=== PATIENT | female | born 1960 | race Caucasian/White ===

== ENCOUNTER 2016-03-17 07:53 | Day surgery (SDC) | payer BC ==
[2016-03-14 15:02] VITALS: BMI 26.2
[~2016-03-17 07:53] MED LIST: LACTATED RINGERS 1,000 ML IV SCH
[2016-03-17] MEDS ORDERED: LACTATED RINGERS 1,000 ML IV ONE (08:20)
[2016-03-17] MEDS ORDERED: LIDOCAINE 1% 20 ML VIAL (10MG/ML) FOR IV START INTRADERMA ONE (08:20)
[2016-03-17 08:23] VITALS: TEMP 98
[2016-03-17] MEDS ORDERED: PROPOFOL 10 MG/ML 20 ML VIAL IV ONE (09:01)
--- NOTE | 2016-03-17 09:15 | P.PCN ---
Date of Procedure: 03/17/16 Procedure(s) Performed: BRIEF HISTORY: Patient is a 55-year-old pleasant white female, scheduled for an elective colonoscopy as a part of screening for colorectal neoplasia. She does have family history of colon cancer diagnosed in a grandmother at age 70. PROCEDURE PERFORMED: Colonoscopy. PREOPERATIVE DIAGNOSIS: Screening for colon cancer/family history of colon cancer. IV sedation per Anesthesia. PROCEDURE: After informed consent was obtained, the patient, was brought into the endoscopy unit. IV conscious sedation was administered by Anesthesia under continuous monitoring. Digital rectal examination was normal. Initially the Olympus CF-160 flexible video colonoscope was then inserted in the rectum, gradually advanced into the cecum without any difficulty. Careful examination was performed as the scope was gradually being withdrawn. Ileocecal valve and the appendiceal orifice were visualized and appeared normal. Prep was excellent. Mucosa of the cecum, ascending colon, transverse colon, descending colon, sigmoid colon, and rectum appeared normal. Retroflexion was performed in the rectum and no lesions were seen. The patient tolerated the procedure well. IMPRESSION: Normal-appearing colon from rectum to cecum with no evidence of colorectal. RECOMMENDATIONS: Findings of this examination were discussed with the patient as well as a family. She was advised to have a repeat screening colonoscopy in 5 years because of family history of colon cancer.
[2016-03-17 09:21] VITALS: RESP 16
[2016-03-17 09:53] VITALS: BP 96/61; PULSE 74
== END 2016-03-17 10:05 | disposition home or self-care (01) ==
LOC: ORWHC2ENDO 07:53
PROVIDERS: ATTEND Internal Medicine Gastroenterology
DX: Z12.11 Encounter for screening for malignant neoplasm of colon (principal); Z80.0 Family history of malignant neoplasm of digestive organs; Z79.899 Other long term (current) drug therapy; Z79.2 Long term (current) use of antibiotics
CPT/HCPCS: 81025; 84703; J2704; G0105

== ENCOUNTER → 2016-10-13 | Outpatient (CLI) | payer BC ==
[2016-10-13 16:31] LABS: EKG EKG PERFORMED
[2016-10-13 17:08] LABS: Basophils % (A) 1 %; CHCM 30.3; Eosinophils # (A) 0.2 k/uL (0-0.7); Eosinophils % (A) 3 %; HCT 30.8 % (34.0-46.0); HDW 3.95; HGB 9.5 gm/dL (11.4-16.0); Hypochromasia Marked; Luc # (Auto) 0.12; Luc % (Auto) 2; Lymphocytes # (A) 1.3 k/uL (1.0-4.8); Lymphocytes % (A) 26 %; MCH 27.4 pg (25.0-35.0); MCHC 30.7 g/dL (31.0-37.0); MCV 89.3 fL (80.0-100.0); Mean Platelet Volume 9.4; Monocytes # (A) 0.3 k/uL (0-1.0); Monocytes % (A) 5 %; Neutrophils # (A) 3.3 k/uL (1.3-7.7); Neutrophils % (A) 63 %; Poikilocytosis Slight; RBC 3.45 m/uL (3.80-5.40); RDW 13.4 % (11.5-15.5); WBC 5.2 k/uL (3.8-10.6); WBC (Perox) 5.28
== END | disposition home or self-care (01) ==
LOC: LABPAT 16:19 → LABWHC1 16:19
PROVIDERS: ATTEND Obstetrics & Gynecology
DX: Z01.818 Encounter for other preprocedural examination (principal); Z01.810 Encounter for preprocedural cardiovascular examination; N93.8 Other specified abnormal uterine and vaginal bleeding
CPT/HCPCS: 36415; 82670; 83001; 85025; 93005

== ENCOUNTER 2016-10-17 05:57 | Day surgery (SDC) | payer BC ==
--- NOTE | 2016-10-12 07:30 | P.HPOB ---
History of Present Illness H&P Date: 10/12/16 Chief Complaint: Postmenopausal bleeding and endometrial thickening. This patient is a pleasant 55-year-old 3 para 2 female who presented to me with complaints of postmenopausal bleeding. Patient had not had a menstrual cycle in approximately 2 months, then she had 2 very heavy cycles. Past medical history is significant for breast cancer and tamoxifen use. Patient had a pelvic ultrasound which showed endometrial thickening of 14 mm with questionable polyps. Patient did have an endometrial biopsy approximately 2 years ago that was okay however now presents for hysteroscopy D&C for further evaluation. Review of Systems Constitutional: Denies chills, Denies fever Ears, nose, mouth and throat: Denies headache, Denies sore throat Cardiovascular: Denies chest pain, Denies shortness of breath Gastrointestinal: Denies abdominal pain, Denies diarrhea, Denies nausea, Denies vomiting Genitourinary: Reports as per HPI, Reports abnormal vaginal bleeding Menstruation: Reports as per HPI Past Medical History Past Medical History: Cancer Additional Past Medical History / Comment(s): hx breast cancer History of Any Multi-Drug Resistant Organisms: None Reported Past Surgical History: Breast Surgery, Section Additional Past Surgical History / Comment(s): bilateral mastectomies/with reconstruction Past Anesthesia/Blood Transfusion Reactions: No Reported Reaction Past Psychological History: No Psychological Hx Reported Smoking Status: Never smoker Past Alcohol Use History: None Reported Past Drug Use History: None Reported - Past Family History Mother Family Medical History: Cancer Additional Family Medical History / Comment(s): fallopian tube cancer, mat. gma - colon cancer Medications and Allergies Home Medications Medication Instructions Recorded Confirmed Type Amoxic-Pot Clav 875-125Mg 1 tab PO Q12HR 03/14/16 03/17/16 History [Augmentin 875-125] Tamoxifen [Nolvadex] 20 mg PO DAILY 03/14/16 03/17/16 History Allergies Allergy/AdvReac Type Severity Reaction Status Date / Time No Known Allergies Allergy Verified 03/14/16 14:30 Exam - OBG Physical Exam Abdomen: bowel sounds normal, no diffuse tenderness, no bruit present, no guarding noted, no hepatomegaly, no splenomegaly, no mass Vulva: both: normal Vagina: atrophic mucosa Cervix: no lesion, no discharge Uterus: normal size Results Transvaginal ultrasound on September 22 shows endometrial thickening to 14 mm. There are 2 densities in the endometrium that are consistent with possible polyps that are 1.9 cm and 1.0 cm. Ovaries appear normal. Assessment and Plan (1) Postmenopausal bleeding Narrative/Plan: This is a pleasant 55-year-old 3 para 2 female with postmenopausal bleeding, endometrial thickening, and tamoxifen use. Plan is hysteroscopy and D &C for further evaluation. Patient and I, and her , have discussed the surgery and risks including risks of infection, bleeding, possible uterine perforation. All the patient's questions are answered and a written consent is obtained. Status: Acute
[2016-10-13 14:56] VITALS: BMI 25.7
[~2016-10-17 05:57] MED LIST changes: -LACTATED RINGERS 1,000 ML IV SCH; +Pre Op ABX Message 1 EACH MISC MISCELLANE ONE
[2016-10-17] MEDS ORDERED: ONDANSETRON 4 MG/2 ML VIAL IVP ONE (05:58)
[2016-10-17] MEDS ORDERED: DEXAMETHASONE SOD PHOSPHATE 10 MG/ML 1 ML VIAL IV ONE (05:58)
[2016-10-17] MEDS ORDERED: LIDOCAINE 1% 20 ML VIAL (10MG/ML) FOR IV START INTRADERMA PRN (05:58)
[2016-10-17] MEDS ORDERED: SCOPOLAMINE 1.5MG/72HR PATCH TRANSDERM ONE (05:58)
[2016-10-17] MEDS ORDERED: LACTATED RINGERS 1,000 ML IV SCH (05:58)
[2016-10-17] MEDS ORDERED: HYDROmorphone 1 MG/ML 1 ML SYRINGE IVP PRN (05:58)
[2016-10-17] MEDS ORDERED: MIDAZOLAM 2 MG/2 ML VIAL IV PRN (05:58)
[2016-10-17 06:20] VITALS: TEMP 98
[2016-10-17] MEDS ORDERED: fentaNYL (PF) 50 MCG/ML 2 ML AMP ONE (06:56)
[2016-10-17] MEDS ORDERED: MIDAZOLAM 2 MG/2 ML VIAL ONE (06:56)
[2016-10-17] MEDS ORDERED: LIDOCAINE 1% INJ 10MG/ML (20 ML MDV) ONE (06:56)
[2016-10-17] MEDS ORDERED: PROPOFOL 10 MG/ML 20 ML VIAL IV ONE (06:56)
--- NOTE | 2016-10-17 07:26 | P.OP ---
Date of Procedure: 10/17/16 Preoperative Diagnosis: Post menopausal bleeding with endometrial thickening Postoperative Diagnosis: Same Procedure(s) Performed: #1: Hysteroscopy. #2: Dilation and curettage Implants: Anesthesia: MAC Surgeon: Art Mujica Estimated Blood Loss (ml): 10 Urine output (ml): 25 Pathology: other (Uterine curettings) Condition: stable Disposition: PACU Indications for Procedure: Please see dictated H&P for intimate details of this patient's admission. Brief summary is a pleasant 55-year-old female with postmenopausal bleeding on tamoxifen. Patient had a transvaginal ultrasound showed endometrial thickening. She now presents for hysteroscopy D&C for further evaluation. Patient understands this surgery and risks including risks of infection, bleeding, possible uterine perforation. All the patient's questions are answered and a written consent is obtained. Operative Findings: This patient had an enlarged uterus with multiple benign appearing polypoid endometrial growths. Description of Procedure: This patient is taken to the operating room where she is laid in the supine position. She subsequently undergoes general mask anesthesia without incident. With an adequate level of anesthesia was placed in dorsal lithotomy position. She has a vaginal perineal prep and drape. Examination under anesthesia shows a mid position uterus. I drain the bladder at this time for 25 mL of clear urine. Uterus is then sounded to approximately 12 cm. Gentle dilation is done of the endocervix to easily allow the hysteroscope into the uterine cavity. Using saline solution hysteroscopy is performed. Endometrial cavity does appear thickened with multiple polypoid areas. With this done the hysteroscope was then removed. Then dilate the cervix more to allow a polyp forceps into the uterine cavity. Multiple pieces of tissue were removed at this time. A gentle but vigorous 4 quadrant curettage is then done for adequate sampling. All of this tissue is sent off to pathology. With this done the Allis clamps removed the weighted speculum removed. All counts are correct 3. There are no complications. Patient is taken to the recovery room in satisfactory condition.
[2016-10-17 07:38] VITALS: RESP 16
[2016-10-17] MEDS ORDERED: LACTATED RINGERS 1,000 ML IV ONE (08:12)
[2016-10-17 08:40] VITALS: BP 121/80; PULSE 71
== END 2016-10-17 09:12 | disposition home or self-care (01) ==
LOC: OR 05:57
PROVIDERS: ATTEND Obstetrics & Gynecology
DX: N85.00 Endometrial hyperplasia, unspecified (principal); N95.0 Postmenopausal bleeding; Z85.3 Personal history of malignant neoplasm of breast; Z79.810 Long term (current) use of selective estrogen receptor modulators (SERMs)
CPT/HCPCS: 81025; 88305; 58558; J2250; J1100; J2405; J2001; J3010; J2704

== ENCOUNTER → 2018-01-25 | Day surgery (SDC) | payer BC ==
[2018-01-22 15:59] VITALS: BMI 25.0
--- NOTE | 2018-01-24 08:04 | P.HPOB ---
History of Present Illness H&P Date: 01/24/18 Chief Complaint: Postmenopausal bleeding, endometrial thickening. This patient is a pleasant 57 yr old female who is presenting for a hysteroscopy and D&C for recurrent postmenopausal bleeding and abnormal endometrial thickening. Patient's history is such that she has been on Tamoxifen for breast cancer. Due to this, she has had surveillance ultrasounds. She had an episode of vaginal bleeding as well. Ultrasound shows a 2x3cm area in the endometrium. Previous D&C in September of 2016 showed this to be benign polypoid growths. She is now presenting for re-evaluation. Review of Systems Genitourinary: Reports as per HPI, Reports abnormal vaginal bleeding Menstruation: Reports as per HPI Past Medical History Past Medical History: Cancer Additional Past Medical History / Comment(s): Hx breast cancer 2013. THICKENING OF UTERINE LINING, MASS. History of Any Multi-Drug Resistant Organisms: None Reported Past Surgical History: Breast Surgery, Section Additional Past Surgical History / Comment(s): Bilateral mastectomies/with reconstruction. D&C, HYSTEROSCOPY. COLONOSCOPY. Past Anesthesia/Blood Transfusion Reactions: No Reported Reaction Past Psychological History: No Psychological Hx Reported Smoking Status: Never smoker Past Alcohol Use History: None Reported Past Drug Use History: None Reported - Past Family History Mother Family Medical History: Cancer Additional Family Medical History / Comment(s): fallopian tube cancer, mat. gma - colon cancer, ?blood clot Medications and Allergies Home Medications Medication Instructions Recorded Confirmed Type Tamoxifen [Nolvadex] 20 mg PO HS 03/14/16 01/22/18 History Calcium (Unknown Dose) 1 tab PO DAILY 01/22/18 History Allergies Allergy/AdvReac Type Severity Reaction Status Date / Time No Known Allergies Allergy Verified 01/22/18 15:45 Exam - OBG Physical Exam Abdomen: bowel sounds normal, no diffuse tenderness, no bruit present, no guarding noted, no hepatomegaly, no splenomegaly, no mass Vulva: both: normal Vagina: normal moisture, no discharge Cervix: no lesion, no discharge Uterus: normal size Results Transvaginal ultrasound shows endometrial thickening 2x3 cm. Assessment and Plan Assessment: This is a pleasant 57 year old female with abnormal endometial thickening, an episode of postmenopausal bleeding, and current Tamoxifen use. Plan is hysteroscopy and D&C for further evaluation. Azalia and Barak have discussed this surgery and risks: infection, bleeding, possible uterine perforation. All of the patients questions were answered and a written consent obtained. (1) Postmenopausal bleeding Status: Acute Code(s): N95.0 - POSTMENOPAUSAL BLEEDING SNOMED Code(s): 99663618 (2) Endometrial thickening on ultrasound Status: Acute Code(s): R93.89 - ABNORMAL FINDINGS ON DX IMAGING OF OTH BODY STRUCTURES SNOMED Code(s): 678020526 (3) Use of tamoxifen (Nolvadex) Status: Acute Code(s): Z79.810 - LNG TRM (CRNT) USE OF SLCTV ESTROG RECEPTOR MODULATORS SNOMED Code(s): 314423173
[~2018-01-25] MED LIST changes: +DEXAMETHASONE SOD PHOSPHATE 10 MG/ML 1 ML VIAL IV ONE; +KETOROLAC 30 MG/ML 1 ML VIAL ONE; +LACTATED RINGERS 1,000 ML IV ONE; +LACTATED RINGERS 1,000 ML IV SCH; +LIDOCAINE 1% INJ 10MG/ML (20 ML MDV) ONE; +MIDAZOLAM 2 MG/2 ML VIAL ONE; +MORPHINE SULFATE 2 MG/ML SYRINGE IV PRN; +ONDANSETRON 4 MG/2 ML VIAL IVP ONE; +ONDANSETRON 4 MG/2 ML VIAL IVP PRN; +PROPOFOL 10 MG/ML 20 ML VIAL IV ONE; +fentaNYL (PF) 50 MCG/ML 2 ML AMP ONE
[2018-01-25 07:35] VITALS: TEMP 96.8
--- NOTE | 2018-01-25 07:37 | P.OP ---
Date of Procedure: 01/25/18 Preoperative Diagnosis: #1: Postmenopausal bleeding. #2: Abnormal endometrial thickening. #3: Tamoxifen exposure Postoperative Diagnosis: Same, benign endometrial polyp/fibroid. Procedure(s) Performed: #1: Hysteroscopy. #2: Dilation and curettage Anesthesia: MAC Surgeon: Art Mujica Estimated Blood Loss (ml): 25 Urine output (ml): 25 Pathology: other (Uterine curettings) Condition: stable Disposition: PACU Indications for Procedure: Please see dictated H&P for intimate details of this patient's admission. Brief summary this is a pleasant 57-year-old female with a history of breast cancer who is been on tamoxifen for prophylactic treatment. Patient's been followed with transvaginal ultrasounds and did have an episode of postmenopausal bleeding. Patient had a 2 x 3 cm area in the endometrium that was thickened. Patient's had a previous hysteroscopy D&C for benign findings however now presents for repeat sampling. She understands this surgery and risks and risks of infection, bleeding, possible uterine perforation. All the patient's questions are answered written consent is obtained. Operative Findings: This patient had a 2 x 3 cm appearing endometrial polyp/fibroid. This appeared benign in appearance. Description of Procedure: This patient is taken to the operating room where she is laid in the supine position. She subsequent undergoes general mask anesthesia without incident. With adequate level of anesthesia was placed in dorsal lithotomy position. His vaginal perineal prep and drape. Examination under anesthesia shows a mid position uterus. I then place a weighted speculum posterior vagina. Anterior lip of the cervix is gravid and Allis clamp. The uterus is then sounded to approximate 9.5 cm. Cervix is easily dilated to allow the hysteroscope into the uterine cavity. Using saline solution hysteroscopy is performed and there is a large solitary polyp in the endometrial cavity. This could be a submucosal fibroid as well but regardless as smooth appearance and did not appear concerning. I dilated the cervix more at this time to allow the polyp forceps into the uterine cavity and despite multiple attempts with the polyp forceps and Dawson I'm unable to remove the entire growth but I am to sample it with multiple fragments. I did do a vigorous 4 quadrant curettage as well for minimal tissue. The rest of the endometrium appeared very atrophic. At this point I am comfortable that this is a benign endometrial polyp/fibroid and therefore the procedure is ended. It does appear to be large enough the base brought enough that we would not be able to completely removed at this time. This point the procedure is ended. The weighted speculum and Allis clamp are removed. All counts are correct 3. There are no complications. Patient is awakened from anesthesia and taken recovery room satisfactory condition.
[2018-01-25 08:29] VITALS: BP 119/77; PULSE 76; RESP 16
== END | disposition home or self-care (01) ==
LOC: OR 05:46
PROVIDERS: ATTEND Obstetrics & Gynecology
DX: N95.0 Postmenopausal bleeding (principal); N84.0 Polyp of corpus uteri; Z85.3 Personal history of malignant neoplasm of breast; R93.89 Abnormal findings on diagnostic imaging of other specified body structures; Z79.810 Long term (current) use of selective estrogen receptor modulators (SERMs)
CPT/HCPCS: 81025; 88305; 58558; J2250; J1100; J2405; J2001; J3010; J1885; J2704

== ENCOUNTER → 2018-04-18 | Outpatient (CLI) | payer BC ==
[2018-04-18 16:52] LABS: Basophils % (A) 0 %; Eosinophils # (A) 0.2 k/uL (0-0.7); Eosinophils % (A) 4 %; HCT 39.8 % (34.0-46.0); HGB 12.8 gm/dL (11.4-16.0); Lymphocytes # (A) 1.1 k/uL (1.0-4.8); Lymphocytes % (A) 20 %; MCHC 32.2 g/dL (31.0-37.0); Mean Platelet Volume 7.9; Monocytes # (A) 0.3 k/uL (0-1.0); Monocytes % (A) 5 %; Neutrophils # (A) 3.7 k/uL (1.3-7.7); Neutrophils % (A) 69 %; Platelet Count 174 k/uL (150-450); RBC 4.27 m/uL (3.80-5.40); RDW 13.1 % (11.5-15.5); WBC 5.4 k/uL (3.8-10.6)
[2018-04-18 16:59] LABS: Anion Gap 7 mmol/L; Blood Urea Nitrogen 11 mg/dL (7-17); Calcium 9.4 mg/dL (8.4-10.2); Carbon Dioxide 25 mmol/L (22-30); Chloride 110 mmol/L (98-107); Glucose 88 mg/dL (74-99); Potassium 4.5 mmol/L (3.5-5.1); Sodium 142 mmol/L (137-145)
== END | disposition home or self-care (01) ==
LOC: LABPAT 15:46
PROVIDERS: ATTEND Obstetrics & Gynecology
DX: Z01.812 Encounter for preprocedural laboratory examination (principal)
CPT/HCPCS: 80048; 85025

== ENCOUNTER 2018-04-19 06:03 | Day surgery (SDC) | payer BC ==
--- NOTE | 2018-04-18 17:01 | P.HPOB ---
History of Present Illness H&P Date: 04/18/18 Chief Complaint: Vaginal bleeding/prolapsing polyp/fibroid This patient is a pleasant 57 yr female who presented to my office with 9 days of bleeding and concern that she had a retained tampon. Her history is such that she had a D&C in December 2017 for postmenopausal bleeding / Tamoxifen use that showed a benign endometrial growth that was thought to be a polyp, but could not be removed due to its size (~3cm). Exam now shows this to be prolapsing through the cervix and necrotic. She now presents for attempted removal with D&C. Review of Systems Genitourinary: Reports as per HPI, Reports abnormal vaginal bleeding Menstruation: Reports postmenopausal Past Medical History Past Medical History: Cancer, Osteoarthritis (OA) Additional Past Medical History / Comment(s): hx breast cancer History of Any Multi-Drug Resistant Organisms: None Reported Past Surgical History: Breast Surgery, Section Additional Past Surgical History / Comment(s): bilateral mastectomies/with reconstruction; Hysteroscopy with D&C times 2 Past Anesthesia/Blood Transfusion Reactions: No Reported Reaction Past Psychological History: No Psychological Hx Reported Smoking Status: Never smoker Past Alcohol Use History: Occasional Past Drug Use History: None Reported - Past Family History Mother Family Medical History: Cancer Additional Family Medical History / Comment(s): fallopian tube cancer, mat. gma - colon cancer, ?blood clot Medications and Allergies Home Medications Medication Instructions Recorded Confirmed Type Tamoxifen [Nolvadex] 20 mg PO HS 03/14/16 01/22/18 History Calcium (Unknown Dose) 1 tab PO DAILY 01/22/18 01/25/18 History Ibuprofen [Motrin] 600 mg PO Q6HR PRN #40 tab 01/25/18 Rx Allergies Allergy/AdvReac Type Severity Reaction Status Date / Time No Known Allergies Allergy Verified 01/22/18 15:45 Exam - OBG Physical Exam Abdomen: bowel sounds normal, no diffuse tenderness, no bruit present, no guarding noted, no hepatomegaly, no splenomegaly, no mass Vulva: both: normal Vagina: normal moisture, no discharge Cervix: lesion (Large (3cm) polypoid/necrotic growth protruding through the cervix. ), no discharge Uterus: normal size Assessment and Plan Assessment: This is a pleasant 57 yr female with a prolapsing cervical polyp/fibroid and vaginal bleeding. It does appear necrotic. Plan is dilation and curettage with removal. Patient understands that if I am unable to remove and/or she has excessive bleeding then would need a total abdominal hysterectomy with bilateral salping-oophrectomy. She and I have discussed these surgeries and risks, including but not limited to infection, bleeding, possible injury to bowel/bladder/vessel/ and or other organs. All of the patients questions were answered and a written consent obtained. (1) Polyp at cervical os Status: Acute Code(s): N84.1 - POLYP OF CERVIX UTERI SNOMED Code(s): 917690121 (2) Uterine bleeding Status: Acute Code(s): N93.9 - ABNORMAL UTERINE AND VAGINAL BLEEDING, UNSPECIFIED SNOMED Code(s): 88949641
[~2018-04-19 06:03] MED LIST changes: -DEXAMETHASONE SOD PHOSPHATE 10 MG/ML 1 ML VIAL IV ONE; -KETOROLAC 30 MG/ML 1 ML VIAL ONE; -LACTATED RINGERS 1,000 ML IV ONE; -LACTATED RINGERS 1,000 ML IV SCH; -LIDOCAINE 1% INJ 10MG/ML (20 ML MDV) ONE; -MIDAZOLAM 2 MG/2 ML VIAL ONE; -MORPHINE SULFATE 2 MG/ML SYRINGE IV PRN; -ONDANSETRON 4 MG/2 ML VIAL IVP ONE; -ONDANSETRON 4 MG/2 ML VIAL IVP PRN; -PROPOFOL 10 MG/ML 20 ML VIAL IV ONE; -Pre Op ABX Message 1 EACH MISC MISCELLANE ONE; +ceFAZolin IN SWFI 2 GM/20 ML SYRINGE IVP ONE; -fentaNYL (PF) 50 MCG/ML 2 ML AMP ONE
[2018-04-19] MEDS ORDERED: LIDOCAINE 1% 20 ML VIAL (10MG/ML) FOR IV START INTRADERMA ONE (06:50)
[2018-04-19] MEDS ORDERED: LACTATED RINGERS 1,000 ML IV ONE (06:50)
[2018-04-19] MEDS ORDERED: DEXAMETHASONE SOD PHOS (MDV) 100 MG/10 ML VIAL IVP ONE (07:04)
[2018-04-19] MEDS ORDERED: ONDANSETRON 4 MG/2 ML VIAL IVP ONE ×2 (07:04→07:05)
[2018-04-19] MEDS ORDERED: DEXAMETHASONE SOD PHOSPHATE 10 MG/ML 1 ML VIAL IV ONE (07:05)
[2018-04-19] MEDS ORDERED: HYDROmorphone 0.5 MG/0.5 ML SYRINGE IVP PRN (07:05)
[2018-04-19] MEDS ORDERED: LACTATED RINGERS 1,000 ML IV SCH (07:05)
[2018-04-19] MEDS ORDERED: LIDOCAINE 1% 20 ML VIAL (10MG/ML) FOR IV START INTRADERMA PRN (07:05)
[2018-04-19] MEDS ORDERED: LIDOCAINE 1% INJ 10MG/ML (20 ML MDV) ONE (07:24)
[2018-04-19] MEDS ORDERED: SUCCINYLCHOLINE CHLORIDE 100 MG/5 ML SYR IV ONE (07:24)
[2018-04-19] MEDS ORDERED: fentaNYL (PF) 50 MCG/ML 2 ML AMP ONE (07:24)
[2018-04-19] MEDS ORDERED: MIDAZOLAM 2 MG/2 ML VIAL ONE (07:24)
[2018-04-19] MEDS ORDERED: ceFAZolin 1,000 MG VIAL ONE (07:24)
[2018-04-19] MEDS ORDERED: PROPOFOL 10 MG/ML 20 ML VIAL IV ONE (07:24)
[2018-04-19] MEDS ORDERED: NALOXONE 0.4 MG/ML 1 ML VIAL ONE (07:24)
--- NOTE | 2018-04-19 08:11 | P.OP ---
Date of Procedure: 04/19/18 Preoperative Diagnosis: Prolapsing uterine polyp/fibroid with vaginal bleeding Postoperative Diagnosis: Same Procedure(s) Performed: Dilation and curettage with removal of uterine polyp Anesthesia: MARGIA Surgeon: Art Mujica Estimated Blood Loss (ml): 10 Urine output (ml): 25 Pathology: other (Uterine curettings and endometrial growth) Condition: stable Disposition: PACU Indications for Procedure: Please see dictated H&P for intimate details of this patient's admission. Brief summary this pleasant 57-year-old patient well known to me with initial complaints of prolonged vaginal bleeding and suspected retained tampon which actually turned out to be a prolapsing uterine polyp/fibroid patient now presents for dilation and curettage and removal. She and I did discuss the surgery in detail she understands I believe this can be removed without doing a hysterectomy if she did have excessive bleeding or other complications from her removal this was always be a case. Patient stands risks of surgery including risks of infection, bleeding, possible requiring more surgery. All the patient' s questions are answered written consent is obtained. Operative Findings: This patient a very large 7 x 3 cm prolapsing endometrial polyp/fibroid. It appeared to be necrotic Description of Procedure: This patient is taken to the operating room where she is laid in the supine position. She subsequently undergoes general endotracheal anesthesia without incident. With an adequate level of anesthesia she's placed in dorsal lithotomy position. She has a vaginal perineal prep and drape. Examination under anesthesia shows a mid position uterus with a growth coming from the cervix. Bladder is drained for 25 mL of clear urine. Then place weighted speculum posterior vagina and grabbed the anterior lip of the cervix on Allis clamp. This time I grabbed this prolapsing mass with a ring forceps and twisted this off of its base. This was removed easily. Quite large approximately 7 x 3 cm and appeared to be degenerating growths/necrotic. Patient was given 2 g of Ancef prophylactically. This time a gentle 4 quadrant curettage is then done with small curette and no further tissue was noted in the endometrial cavity is quite smooth. I believe all the tissue is removed including all of any polyp tissue. There is minimal bleeding at this time. Procedures then ended. Weighted speculum was removed and Allis clamps removed. All counts correct 3. Patient is awakened from anesthesia and taken recovery room in satisfactory condition.
[2018-04-19 08:16] VITALS: TEMP 97
[2018-04-19 08:23] VITALS: RESP 16
[2018-04-19 09:11] VITALS: BP 117/78; PULSE 76
== END 2018-04-19 10:05 | disposition home or self-care (01) ==
LOC: OR 06:03
PROVIDERS: ATTEND Obstetrics & Gynecology
DX: N84.0 Polyp of corpus uteri (principal); M19.90 Unspecified osteoarthritis, unspecified site; Z90.13 Acquired absence of bilateral breasts and nipples; Z85.3 Personal history of malignant neoplasm of breast; Z80.49 Family history of malignant neoplasm of other genital organs; Z80.0 Family history of malignant neoplasm of digestive organs; Z79.899 Other long term (current) drug therapy
CPT/HCPCS: 81025; 86900; 86901; 88305; 86850; 58120; J2250; J2310; J2405; J0690; J2001; J3010; J1100; J0330; J2704

== ENCOUNTER → 2018-06-07 | Outpatient (CLI) | payer BC ==
--- NOTE | 2018-06-07 14:07 | BD ---
EXAMINATION TYPE: Axial Bone Density DATE OF EXAM: 06/07/2018 COMPARISON: NONE CLINICAL HISTORY: Height: 5 FT 4 1/2 IN Weight: 149 RISK FACTORS HISTORY OF: Active: YES Postmenopausal woman: AGE 56 MEDICATIONS: Additional Medications: VIT D , TAMOXIFEN Additional History: BREAST CANCER 2013, EXAM MEASUREMENTS: Bone mineral densitometry was performed using the [employer] System. Bone mineral density as measured about the Lumbar spine is: ----- L1-L4(G/cm2): 1.365 T Score Values are as follows: ----- L2: 1.4 ----- L3: 2.1 ----- L4: 1.5 ----- L1-L4: 1.5 BASELINE Bone mineral density about the R hip (g/cm2): 0.866 Bone mineral density about the L hip (g/cm2): 0.926 T Score values are as follows: -----R Neck: -1.2 -----L Neck: -0.8 -----R Total: -0.6 -----L Total: -0.7 BASELINE IMPRESSION: No evidence for osteoporosis or osteopenia. NOTE: T-SCORE=SD OF THE YOUNG ADULT MEAN.
== END ==
LOC: RADBDWWP 13:10
PROVIDERS: ATTEND Obstetrics & Gynecology
DX: Z13.820 Encounter for screening for osteoporosis (principal)
CPT/HCPCS: 77080

== ENCOUNTER → 2020-06-08 | Outpatient (CLI) | payer BC ==
--- NOTE | 2020-06-08 16:33 | BD ---
EXAMINATION TYPE: Axial Bone Density DATE OF EXAM: 06/08/2020 COMPARISON: 06.07.2018 CLINICAL HISTORY: 59 YR OLD FEMALE....ICD-10 CODE: Z79.890 POST MENOPAUSAL Height: 64 Weight: 148 FRAX RISK QUESTIONS: NOTHING TO NOTE HERE RISK FACTORS HISTORY OF: Family History of Osteoporosis: YES, GRANDMOTHER Postmenopausal woman: YES, AT AGE 56 Hyperparathyroidism: NO Adrenal Insufficiency: NO MEDICATIONS: Additional Medications: TOMOXIN, LT BREAST CANCER, VIT D WITH CALCIUM, , Additional History: BILAT MASTECTOMY, HX OF LT BREAST CANCER, EXAM MEASUREMENTS: Bone mineral densitometry was performed using the [employer] System. Bone mineral density as measured about the Lumbar spine is: ----- L1-L4(G/cm2): 1.285 T Score Values are as follows: ----- L1: 0.2 ----- L2: 0.4 ----- L3: 1.3 ----- L4: 1.4 ----- L1-L4: 0.9 Bone mineral density has: Decreased -5.6% since study of: 06.07.2018 Bone mineral density about the R hip (g/cm2): 0.843 Bone mineral density about the L hip (g/cm2): 0.842 T Score values are as follows: -----R Neck: -1.3 -----L Neck: -1.1 -----R Total: -1.3 -----L Total: -1.3 Bone mineral density has: Decreased -9.2% since study of: 06.07.2018 FRAX%s: THERE IS A 7.3% CHANCE FOR A MAJOR OSTEOPOROTIC FX AND A 0.5% FOR HIP......PROBABILITY FOR FX IN 10 YRS TIME IMPRESSION: Osteopenia (T Score between -2.5 and -1). There is slightly increased risk of fracture and the patient may be considered for treatment. Re-Screen 2-5 years. NOTE: T-SCORE=SD OF THE YOUNG ADULT MEAN.
== END | disposition home or self-care (01) ==
LOC: RADBDWWP 13:09
PROVIDERS: ATTEND Internal Medicine Hematology & Oncology
DX: M85.89 Other specified disorders of bone density and structure, multiple sites (principal); Z78.0 Asymptomatic menopausal state; Z85.3 Personal history of malignant neoplasm of breast; Z90.13 Acquired absence of bilateral breasts and nipples
CPT/HCPCS: 77080

== ENCOUNTER → 2022-06-15 | Outpatient (CLI) | payer BC ==
--- NOTE | 2022-06-16 16:05 | BD ---
EXAMINATION TYPE: Axial Bone Density DATE OF EXAM: 06/15/2022 CLINICAL HISTORY: 61 year old Female. ICD-10 CODE: M85.9 DISORDER OF BONE DENSITY AND STRUCTURE, UNS P Height: 65 Weight: 152.6 FRAX RISK QUESTIONS: Alcohol (3 or more units per day): no Family History (Parent hip fracture): no Glucocorticoids (More than 3mos): no (Ex: prednisone, prednisolone, methylprednisolone, dexamethasone, and hydrocortisone). History of Fracture in Adulthood: no Secondary Osteoporosis: 1. Type 1 Diabetes: no 2. Hyperthyroidism: no 3. Menopause before 45: no 4. Malnutrition: no 5. Chronic liver disease: no Rheumatoid Arthritis: no Current Tobacco Use: no RISK FACTORS HISTORY OF: Surgery to Spine/Hip(right/left)/Wrist (right/left): no Family History of Osteoporosis: yes Active: yes Diet low in dairy products/other sources of calcium: no Postmenopausal woman: yes Lost more than 2 inches in height since high school: no MEDICATIONS: Osteoporosis Medications: yes, for 1 year- Additional History: EXAM MEASUREMENTS: Bone mineral densitometry was performed using the [employer] System. Bone mineral density as measured about the Lumbar spine is: ----- L1-L4(G/cm2): 1.267 T Score Values are as follows: ----- L1: 0.0 ----- L2: 0.0 ----- L3: 0.9 ----- L4: 1.6 ----- L1-L4: 0.7 Z Score Values are as follows: ----- L1: 1.0 ----- L2: 1.1 ----- L3: 2.0 ----- L4: 2.7 ----- L1-L4: 1.8 Bone mineral density has: decreased-1.4 % since study of: 06.08.2020 Bone mineral density about the R hip (g/cm2): 0.844 Bone mineral density about the L hip (g/cm2): 0.871 T Score values are as follows: -----R Neck: -1.6 -----L Neck: -1.2 -----R Total: -1.3 -----L Total: -1.1 Z Score values are as follows: -----R Neck: -0.5 -----L Neck: -0.2 -----R Total: -0.2 -----L Total: 0.0 Bone mineral density has: increased 1.9 % since study of: 4.13.2020 FRAX%s: The graph provided illustrates a 8.6% chance for a major osteoporotic fx and a 0.8% chance fo r the hips probability for fx in 10 years time. IMPRESSION: Osteopenia (T Score between -2.5 and -1). There is slightly increased risk of fracture and the patient may be considered for treatment. Re-Screen 2-5 years. NOTE: T-SCORE=SD OF THE YOUNG ADULT MEAN.
== END | disposition home or self-care (01) ==
LOC: RADBDWWP 15:41
PROVIDERS: ATTEND Internal Medicine Hematology & Oncology
DX: M85.89 Other specified disorders of bone density and structure, multiple sites (principal); C50.919 Malignant neoplasm of unspecified site of unspecified female breast
CPT/HCPCS: 77080

== ENCOUNTER 2023-04-06 09:41 | Day surgery (SDC) | payer BC ==
[2023-03-14 10:49] VITALS: BMI 25.7
[2023-04-06 10:03] VITALS: TEMP 97.4
[2023-04-06] MEDS: LACTATED RINGERS 1,000 ML IV SCH (10:21)
[2023-04-06] MEDS: LIDOCAINE 1% (10MG/ML) FOR IV START INTRADERMA ONE (10:22)
[2023-04-06] MEDS ORDERED: PROPOFOL 10 MG/ML 20 ML VIAL IV ONE (11:01)
[2023-04-06] MEDS ORDERED: LIDOCAINE 1% INJ 10MG/ML (20 ML MDV) ONE (11:01)
--- NOTE | 2023-04-06 11:18 | P.PCN ---
Date of Procedure: 04/06/23 Procedure(s) Performed: BRIEF HISTORY: Patient is a 62-year-old pleasant white female scheduled for an elective colonoscopy as a part of screening for colon cancer. PROCEDURE PERFORMED: Colonoscopy with snare polypectomy PREOPERATIVE DIAGNOSIS: Screening for colon cancer. IV sedation per Anesthesia. PROCEDURE: After informed consent was obtained, the patient, was brought into the endoscopy unit. IV sedation was administered by Anesthesia under continuous monitoring. Digital rectal examination was normal. Initially the Olympus CF-160 flexible video colonoscope was then inserted in the rectum, gradually advanced into the cecum without any difficulty. Careful examination was performed as the scope was gradually being withdrawn. Ileocecal valve and the appendiceal orifice were visualized and appeared normal. Prep was excellent. Mucosa of the cecum, had an 8 mm flat cecal polyp that was removed by cold snare polypectomy. Rest of the ascending colon, transverse colon, descending colon, sigmoid colon, and rectum appeared normal. Retroflexion was performed in the rectum and no lesions were seen. The patient tolerated the procedure well. IMPRESSION: 8 mm flat cecal polyp status post snare polypectomy Rest of the colon appeared normal RECOMMENDATIONS: Findings of this examination were discussed with the patient as well as her family. She was advised to follow with the biopsy results. If the biopsy result adenoma she can have a repeat colonoscopy in 5 years.
[2023-04-06 12:06] VITALS: BP 110/72; PULSE 67; RESP 18
== END 2023-04-06 12:06 ==
LOC: ORWHC2ENDO 09:41
PROVIDERS: ATTEND Internal Medicine Gastroenterology
DX: Z12.11 Encounter for screening for malignant neoplasm of colon (principal); D12.0 Benign neoplasm of cecum; Z80.0 Family history of malignant neoplasm of digestive organs; Z85.3 Personal history of malignant neoplasm of breast
CPT/HCPCS: 45385; J2001; J2704; 88305

== ENCOUNTER → 2024-01-08 | Outpatient (CLI) | payer BC ==
[2024-01-08 13:33] VITALS: BP 111/75; PULSE 88; RESP 16; TEMP 97.9
--- NOTE | 2024-01-08 14:23 | P.HPOB ---
History of Present Illness H&P Date: 01/08/24 Chief Complaint: The patient is here for her routine gynecologic exam This is a 63-year-old -0-0-3 with an LMP of approximately 2017. Patient is here to establish with this office. It has been about 1-1/2 years since her last pelvic exam. She previously saw Dr. Mujica for her gynecologic care. She is without gynecologic complaints and denies any postmenopausal bleeding. Review of Systems The patient's weight has been stable over the last year. She denies respiratory, cardiac, or G.I. problems. Past Medical History Past Medical History: Cancer, Osteoarthritis (OA) Additional Past Medical History / Comment(s): hx breast cancer(unilateral)2013. Osteopenia(alendronate started 2019). PAST TUG MASTER HISTORY: She has no history of STDs. History of Any Multi-Drug Resistant Organisms: None Reported Past Surgical History: Breast Surgery, Section Additional Past Surgical History / Comment(s): bilateral mastectomies/with reconstruction(BL implants). section for twins. D&C. colonoscopy 2022(next after 5-7yr). Past Anesthesia/Blood Transfusion Reactions: No Reported Reaction Past Psychological History: No Psychological Hx Reported Smoking Status: Never smoker Past Alcohol Use History: Occasional (4 drinks per month.) Past Drug Use History: None Reported Additional History: She has been since 1985. She is an elementary science teacher. - Past Family History Mother Family Medical History: Cancer Additional Family Medical History / Comment(s): fallopian tube cancer, mat. gma- colon cancer, lung cancer. Heart disease. Father Family Medical History: Unable to Obtain Medications and Allergies Home Medications Medication Instructions Recorded Confirmed Type Alendronate Sodium [Fosamax] 70 mg PO MO 03/14/23 01/08/24 History Cholecalciferol [Vitamin D3 (25 25 mcg PO DAILY 03/14/23 01/08/24 History Mcg = 1000 Iu)] Calcium Carbonate [Calcium] 600 mg PO DAILY 01/08/24 01/08/24 History Allergies Allergy/AdvReac Type Severity Reaction Status Date / Time No Known Allergies Allergy Verified 01/08/24 13:30 Exam Vital Signs Temp Pulse Resp BP Pulse Ox 01/08/24 13:30 97.9 F 88 16 111/75 98 Intake and Output 01/07/24 01/08/24 01/08/24 22:59 06:59 14:59 Other: Weight 70.76 kg Height 5 feet 5 inches, weight 156 pounds, BMI 26.0 This is a well-developed well-nourished white female who is alert and oriented times 3 in no acute distress. HEENT: Within normal limits. NECK: Supple without mass or thyromegaly. CHEST AND LUNGS: Clear to auscultation. HEART: Regular rate and rhythm. BREASTS: Are without mass or discharge. Breasts are consistent with bilateral mastectomies. The right nipple is present. The left nipple is absent. AXILLARY EXAM: Negative for adenopathy. BACK: Negative for CVA tenderness. ABDOMEN: Soft, nontender, without palpable masses. PELVIC EXAM: Normal external genitalia with mild atrophy. Cervix and vagina appear normal with mild atrophy. There is no unusual discharge. There is no evidence of prolapse. The uterus is midposition, nongravid size and nontender. There are no palpable adnexal masses or tenderness. RECTAL EXAM: Rectovaginal exam is negative for mass or tenderness and is negative for occult blood. EXTREMITIES: Nontender. IMPRESSION: 1. 63-year-old menopausal female with normal gynecologic exam. 2. History of unilateral breast cancer status post bilateral mastectomies with reconstruction. There is no evidence of recurrence on exam today. 3. History of osteopenia. Patient has been on alendronate since approximately 2019. She states this was started by her oncologist who had her on a medication after her mastectomies. She believes this was tamoxifen and another medication. These have been discontinued. PLAN: 1. Pap smear cotest was performed. If this is negative, we will continue cervical screening until 2 negative Pap smear cotest. 2. Self breast awareness was discussed with the patient. We have also discussed symptoms associated with inflammatory breast cancer. 3. Mammograms have been discontinued because of her bilateral mastectomies. 4. Osteoporosis prevention was discussed. I have stressed the importance of adequate calcium, vitamin D and regular exercise. Recommended amounts of calcium and vitamin D were also discussed. She will continue alendronate as prescribed by her oncologist. Will plan on doing a bone density test again next year. 5. She was advised to return in one year for her annual well woman exam.
== END ==
LOC: WWCWWP 13:17
PROVIDERS: ATTEND Obstetrics & Gynecology
DX: Z01.419 Encounter for gynecological examination (general) (routine) without abnormal findings (principal); M85.80 Other specified disorders of bone density and structure, unspecified site; Z78.0 Asymptomatic menopausal state; Z85.3 Personal history of malignant neoplasm of breast; Z90.13 Acquired absence of bilateral breasts and nipples

== ENCOUNTER → 2024-03-26 | Outpatient (CLI) | payer BC ==
--- NOTE | 2024-03-27 11:39 | MR ---
INDICATION: Patient age:Female; 63 years old; Reason for study: H93.12; PHH. COMPARISON: None. TECHNIQUE: Multi planar, multi sequence imaging was performed through the brain. Specialized thin s equences were obtained through the internal auditory canals. Pre-and post gadolinium sequences were obtained as well after administration of 7 cc of Gadobutrol. FINDINGS: The bautista-white junctions, ventricular system, basal cisterns appear unremarkable. Diffusi on-weighted imaging shows no evidence of restricted diffusion. Right frontal lobe subcortical white matter 4 mm T2/FLAIR hyperintense focus (series 601, image 53). No blooming artifact and susceptibil ity images to suggest blood products. After administration of gadolinium, no abnormal enhancement is seen. The internal auditory canal sequences demonstrate no evidence for mass. There is a vascular loop of the left AICA approaching the opening of the left internal carotid artery canal consistent with a typ e I vascular loop. The 7th cranial nerves, 8 cranial nerves, and cerebellar pontine angles otherwise appear unremarkable. After the administration gadolinium, no abnormal enhancement is seen within the internal auditory canals. IMPRESSION: 1. No evidence of intracranial mass nor acute/subacute CVA. 2. No evidence of internal auditory canal mass. 3. 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 4. Single nonspecific right frontal lobe subcortical white matter focus. Etiologies include small ves amina chronic ischemic disease versus migraine versus demyelination versus other. [facility], , 03/27/2024 11:37 AM
== END | disposition home or self-care (01) ==
LOC: RADMRIMAIN 20:00
PROVIDERS: ATTEND Internal Medicine
DX: H93.12 Tinnitus, left ear (principal); G46.8 Other vascular syndromes of brain in cerebrovascular diseases
CPT/HCPCS: 70553; A9585

== ENCOUNTER → 2024-08-14 | Outpatient (CLI) | payer BC ==
--- NOTE | 2024-08-14 13:16 | BD ---
EXAMINATION TYPE: Axial Bone Density DATE OF EXAM: 08/14/2024 CLINICAL HISTORY: 63 years old Female. ICD-10 CODE: AGE-RELATED OSTEOPOROSIS W/O CURRENT PATHOLOGICA L FRACTURE , Additional History: Height: 64.5 Weight: 160 FRAX RISK QUESTIONS: Secondary Osteoporosis: RISK FACTORS HISTORY OF: MEDICATIONS: EXAM MEASUREMENTS: Bone mineral densitometry was performed using the [employer] [facility] System. Bone mineral density as measured about the Lumbar spine is: ----- L1-L4(G/cm2): 1.341 T Score Values are as follows: ----- L1: 0.3 ----- L2: 0.6 ----- L3: 1.6 ----- L4: 2.3 ----- L1-L4: 1.3 Z Score Values are as follows: ----- L1: 1.5 ----- L2: 1.7 ----- L3: 2.8 ----- L4: 3.4 ----- L1-L4: 2.5 Bone mineral density has: Increased 5.8% since study of: 06-15-22 Bone mineral density about the R hip (g/cm2): 0.903 Bone mineral density about the L hip (g/cm2): 0.911 T Score values are as follows: -----R Neck: -1.3 -----L Neck: -0.9 -----R Total: -0.8 -----L Total: -0.8 Z Score values are as follows: -----R Neck: -0.1 -----L Neck: 0.3 -----R Total: 0.0 -----L Total: 0.1 Bone mineral density has: Increased 5.7% since study of: 06-15-22 FRAX%s: The graph provided illustrates a 8.0% chance for a major osteoporotic fx and a 0.6% chance fo r the hips probability for fx in 10 years time. IMPRESSION: Osteopenia (T Score between -2.5 and -1). There is slightly increased risk of fracture and the patient may be considered for treatment. Re-Screen 2-5 years. NOTE: T-SCORE=SD OF THE YOUNG ADULT MEAN. [facility]: [id number], 08/14/2024 1:14 PM
== END | disposition home or self-care (01) ==
LOC: RADBDWWP 11:05
PROVIDERS: ATTEND Internal Medicine Hematology & Oncology
DX: M81.0 Age-related osteoporosis without current pathological fracture (principal); M85.851 Other specified disorders of bone density and structure, right thigh; D05.90 Unspecified type of carcinoma in situ of unspecified breast
CPT/HCPCS: 77080